=== PATIENT | female | born 1995 | race Caucasian/White ===

== ENCOUNTER 2016-05-27 08:43 | Emergency (ER) | payer BC | END 2016-05-27 12:15 | disposition home or self-care (01) | LOC: D.ER 08:43 | DX: L02.01 Cutaneous abscess of face (principal); L03.211 Cellulitis of face; R51 Headache; I10 Essential (primary) hypertension; F17.200 Nicotine dependence, unspecified, uncomplicated ==

== ENCOUNTER 2016-06-04 21:15 | Emergency (ER) | payer BC | END 2016-06-05 01:15 | disposition left against medical advice (07) | LOC: D.ER 21:15 | DX: I10 Essential (primary) hypertension (principal) ==

== ENCOUNTER 2016-06-29 14:51 | Emergency (ER) | payer SELFPAY | END 2016-06-29 19:12 | disposition home or self-care (01) | LOC: D.ER 14:51 | DX: G43.909 Migraine, unspecified, not intractable, without status migrainosus (principal); R11.10 Vomiting, unspecified ==

== ENCOUNTER 2016-07-04 03:50 | Emergency (ER) | payer SELFPAY | END 2016-07-04 04:35 | disposition home or self-care (01) | LOC: D.ER 03:50 | DX: R51 Headache (principal); I10 Essential (primary) hypertension ==

== ENCOUNTER 2016-11-03 21:49 | Emergency (ER) | payer SELFPAY | END 2016-11-03 23:19 | disposition home or self-care (01) | LOC: D.ER 21:49 | DX: S60.221A Contusion of right hand, initial encounter (principal); W22.8XXA Striking against or struck by other objects, initial encounter; I10 Essential (primary) hypertension; F17.200 Nicotine dependence, unspecified, uncomplicated ==

== ENCOUNTER 2016-11-25 21:30 | Emergency (ER) | payer SELFPAY ==
[2016-11-26 00:21] LABS: BASOPHILS 0.4 % (0-2); EOSINOPHILS 4.6 % (0-7); HEMATOCRIT 41.4 % (36.0-48.0); HEMOGLOBIN 13.8 g/dL (12-16); IMMATURE GRANULOCYTES 0.2 % (0-5); LYMPHOCYTES 48.3 % (15-50); MCH 31.1 pg (26.0-34.0); MCHC 33.3 g/dL (31.0-37.0); MCV 93.2 fL (80.0-100.0); MONOCYTES 6.6 % (2-11); NEUTROPHILS 39.9 % (40-80); PLATELET COUNT 416 10x3/uL (130-400); RBC 4.44 10x6/uL (4.00-5.40); RDW 13.1 % (11.5-14.5); WBC 12.5 10x3/uL (4.8-10.8)
[2016-11-26 00:30] LABS: ALBUMIN 3.5 g/dL (3.4-5.0); ALKALINE PHOSPHATASE 95 U/L (46-116); ALT (SGPT) 39 U/L (10-68); BILIRUBIN - TOTAL 0.25 mg/dL (0.2-1.3); CALC OSMOLALITY 277 mosm/kg (275-300); CALCIUM 9.2 mg/dL (8.5-10.1); CARBON DIOXIDE 27.9 mmol/L (21.0-32.0); CHLORIDE - SERUM 104 mmol/L (98-107); CREATININE - SERUM 0.8 mg/dL (0.6-1.3); GLUCOSE 101 mg/dL (74-106); MAGNESIUM - SERUM 2.1 mg/dL (1.8-2.4); POTASSIUM - SERUM 3.8 mmol/L (3.5-5.1); PROTEIN - SERUM 7.7 g/dL (6.4-8.2); SODIUM 139 mmol/L (136-145); UREA NITROGEN 12 mg/dL (7-18); eGFR NON AFRICAN AMERICAN > 90 mL/min (90-120)
== END 2016-11-26 01:33 | disposition home or self-care (01) ==
LOC: D.ER 21:30
PROVIDERS: Emergency Medicine
DX: R56.9 Unspecified convulsions (principal); I10 Essential (primary) hypertension

== ENCOUNTER 2016-12-07 21:05 | Emergency (ER) | payer SELFPAY | END 2016-12-08 00:10 | disposition home or self-care (01) | LOC: D.ER 21:05 | DX: S70.02XA Contusion of left hip, initial encounter (principal); X58.XXXA Exposure to other specified factors, initial encounter; Y93.52 Activity, horseback riding; Y92.830 Public park as the place of occurrence of the external cause; S39.012A Strain of muscle, fascia and tendon of lower back, initial encounter; F17.200 Nicotine dependence, unspecified, uncomplicated ==

== ENCOUNTER 2016-12-09 18:03 | Emergency (ER) | payer SELFPAY ==
[2016-12-09 19:13] LABS: HCG URINE NEGATIVE (NEGATIVE)
[2016-12-09 19:15] LABS: APPEARANCE SLT CLOUDY (CLEAR); BACTERIA MODERATE /hpf (NONE SEEN); BILIRUBIN NEGATIVE (NEGATIVE); COLOR YELLOW (YELLOW); GLUCOSE NEGATIVE (NEGATIVE); KETONE NEGATIVE (NEGATIVE); LEUKOCYTE ESTERASE TRACE (NEGATIVE); NITRITE NEGATIVE (NEGATIVE); PROTEIN NEGATIVE (NEGATIVE); RED CELLS - URINE RARE /hpf (0-5); SPECIFIC GRAVITY 1.015 (1.005-1.020); UROBILINOGEN NORMAL (NORMAL); WHITE CELLS - URINE 0-5 /hpf (0-5)
== END 2016-12-09 21:41 | disposition home or self-care (01) ==
LOC: D.ER 18:03
PROVIDERS: Nurse Practitioner Family
DX: S39.012A Strain of muscle, fascia and tendon of lower back, initial encounter (principal); W19.XXXA Unspecified fall, initial encounter; Y93.89 Activity, other specified; Y92.019 Unspecified place in single-family (private) house as the place of occurrence of the external cause; I10 Essential (primary) hypertension

== ENCOUNTER 2016-12-28 09:27 | Emergency (ER) | payer MEDICARE | END 2016-12-28 10:38 | disposition left against medical advice (07) | LOC: D.ER 09:27 | DX: M54.5 Low back pain (principal) ==

== ENCOUNTER 2017-01-08 03:28 | Emergency (ER) | payer MEDICARE | END 2017-01-08 03:50 | disposition home or self-care (01) | LOC: D.ER 03:28 | DX: F41.9 Anxiety disorder, unspecified (principal) ==

== ENCOUNTER 2017-03-20 00:47 | Emergency (ER) | payer SELFPAY ==
[2017-03-20 01:28] LABS: BASOPHILS 0.1 % (0-2); EOSINOPHILS 3.1 % (0-7); HEMATOCRIT 38.8 % (36.0-48.0); HEMOGLOBIN 12.8 g/dL (12-16); IMMATURE GRANULOCYTES 0.3 % (0-5); LYMPHOCYTES 30.3 % (15-50); MCH 31.1 pg (26.0-34.0); MCV 94.4 fL (80.0-100.0); MEAN PLATELET VOLUME 9.5 fL (7.4-10.4); MONOCYTES 5.1 % (2-11); NEUTROPHILS 61.1 % (40-80); PLATELET COUNT 408 10x3/uL (130-400); RBC 4.11 10x6/uL (4.00-5.40); RDW 13.2 % (11.5-14.5)
[2017-03-20 01:40] LABS: ALBUMIN 3.2 g/dL (3.4-5.0); ALKALINE PHOSPHATASE 122 U/L (46-116); ALT (SGPT) 33 U/L (10-68); CALC OSMOLALITY 277 mosm/kg (275-300); CALCIUM 9.2 mg/dL (8.5-10.1); CARBON DIOXIDE 26.4 mmol/L (21.0-32.0); CHLORIDE - SERUM 103 mmol/L (98-107); CREATININE - SERUM 0.7 mg/dL (0.6-1.3); GLUCOSE 102 mg/dL (74-106); MAGNESIUM - SERUM 1.7 mg/dL (1.8-2.4); POTASSIUM - SERUM 3.9 mmol/L (3.5-5.1); PROTEIN - SERUM 7.1 g/dL (6.4-8.2); SODIUM 138 mmol/L (136-145); UREA NITROGEN 17 mg/dL (7-18); eGFR NON AFRICAN AMERICAN > 90 mL/min (90-120)
[2017-03-20 01:45] LABS: APPEARANCE CLEAR (CLEAR); BILIRUBIN NEGATIVE (NEGATIVE); COLOR YELLOW (YELLOW); GLUCOSE NEGATIVE (NEGATIVE); KETONE NEGATIVE (NEGATIVE); NITRITE NEGATIVE (NEGATIVE); PROTEIN NEGATIVE (NEGATIVE); SPECIFIC GRAVITY 1.015 (1.005-1.020); UROBILINOGEN NORMAL (NORMAL)
[2017-03-20 01:53] LABS: UDS - AMPHET NEGATIVE QUAL (NEGATIVE); UDS - BARB NEGATIVE QUAL (NEGATIVE); UDS - BENZO NEGATIVE QUAL (NEGATIVE); UDS - COCAINE NEGATIVE QUAL (NEGATIVE); UDS - OPIATE NEGATIVE QUAL (NEGATIVE); UDS - PCP NEGATIVE QUAL (NEGATIVE); UDS - THC NEGATIVE QUAL (NEGATIVE)
== END 2017-03-20 02:50 | disposition home or self-care (01) ==
LOC: D.ER 00:47
PROVIDERS: Family Medicine
DX: G40.89 Other seizures (principal); I10 Essential (primary) hypertension

== ENCOUNTER 2017-03-28 17:12 | Emergency (ER) | payer MEDICAID | END 2017-03-28 19:02 | disposition home or self-care (01) | LOC: D.ER 17:12 | DX: N61.0 Mastitis without abscess (principal); N61.1 Abscess of the breast and nipple; I10 Essential (primary) hypertension; F17.200 Nicotine dependence, unspecified, uncomplicated ==

== ENCOUNTER 2017-04-22 17:33 | Emergency (ER) | payer SELFPAY ==
[2017-04-22 19:44] LABS: BASOPHILS 0.2 % (0-2); EOSINOPHILS 2.4 % (0-7); HEMATOCRIT 38.5 % (36.0-48.0); HEMOGLOBIN 12.9 g/dL (12-16); IMMATURE GRANULOCYTES 0.2 % (0-5); LYMPHOCYTES 45.5 % (15-50); MCH 31.2 pg (26.0-34.0); MCHC 33.5 g/dL (31.0-37.0); MEAN PLATELET VOLUME 9.6 fL (7.4-10.4); MONOCYTES 5.2 % (2-11); NEUTROPHILS 46.5 % (40-80); PLATELET COUNT 413 10x3/uL (130-400); RBC 4.14 10x6/uL (4.00-5.40); RDW 13.2 % (11.5-14.5); WBC 12.8 10x3/uL (4.8-10.8)
[2017-04-22 20:03] LABS: ALBUMIN 3.2 g/dL (3.4-5.0); ALKALINE PHOSPHATASE 106 U/L (46-116); ALT (SGPT) 42 U/L (10-68); CALC OSMOLALITY 281 mosm/kg (275-300); CHLORIDE - SERUM 106 mmol/L (98-107); CREATININE - SERUM 0.7 mg/dL (0.6-1.3); GLUCOSE 88 mg/dL (74-106); POTASSIUM - SERUM 3.5 mmol/L (3.5-5.1); PROTEIN - SERUM 7.2 g/dL (6.4-8.2); SODIUM 143 mmol/L (136-145); UREA NITROGEN 7 mg/dL (7-18); eGFR NON AFRICAN AMERICAN > 90 mL/min (90-120)
[2017-04-22 20:10] LABS: THYROID STIMULATING HORMONE 1.14 uIU/mL (0.36-3.74)
== END 2017-04-22 20:46 | disposition home or self-care (01) ==
LOC: D.ER 17:33
PROVIDERS: Physician Assistant
DX: G40.909 Epilepsy, unspecified, not intractable, without status epilepticus (principal); I10 Essential (primary) hypertension; F17.200 Nicotine dependence, unspecified, uncomplicated

== ENCOUNTER 2017-06-23 01:00 | Emergency (ER) | payer SELFPAY ==
[2017-06-23 01:33] LABS: HEMATOCRIT 39.9 % (36.0-48.0); HEMOGLOBIN 13.4 g/dL (12-16); LYMPHOCYTES 27.4 % (15-50); MCH 30.2 pg (26.0-34.0); MCHC 33.6 g/dL (31.0-37.0); MCV 90.1 fL (80.0-100.0); MEAN PLATELET VOLUME 9.7 fL (7.4-10.4); NEUTROPHILS 66.3 % (40-80); PLATELET COUNT 474 10x3/uL (130-400); RBC 4.43 10x6/uL (4.00-5.40); WBC 18.6 10x3/uL (4.8-10.8)
[2017-06-23 01:44] LABS: ALBUMIN 3.3 g/dL (3.4-5.0); ALKALINE PHOSPHATASE 113 U/L (46-116); ALT (SGPT) 33 U/L (10-68); BILIRUBIN - TOTAL 0.15 mg/dL (0.2-1.3); CALC OSMOLALITY 283 mosm/kg (275-300); CALCIUM 9.2 mg/dL (8.5-10.1); CARBON DIOXIDE 24.5 mmol/L (21.0-32.0); CHLORIDE - SERUM 106 mmol/L (98-107); POTASSIUM - SERUM 3.9 mmol/L (3.5-5.1); PROTEIN - SERUM 7.8 g/dL (6.4-8.2); SODIUM 141 mmol/L (136-145); UREA NITROGEN 13 mg/dL (7-18); eGFR NON AFRICAN AMERICAN 73 mL/min (90-120)
[2017-06-23 01:45] LABS: GLUCOSE 144 mg/dL (74-106)
[2017-06-23 01:47] LABS: CREATINE KINASE 160 UL (21-215); MAGNESIUM - SERUM 1.8 mg/dL (1.8-2.4)
[2017-06-23 01:50] LABS: TROPONIN-I < 0.017 ng/mL (0.000-0.060)
== END 2017-06-23 02:27 | disposition home or self-care (01) ==
LOC: D.ER 01:00
PROVIDERS: Emergency Medicine
DX: R07.9 Chest pain, unspecified (principal); R07.89 Other chest pain

== ENCOUNTER 2017-11-21 23:10 | Emergency (ER) | payer SELFPAY ==
[~2017-11-21] VITALS: Ht 160 cm; Wt 104.5 kg
[2017-11-21 23:13] VITALS: Ht 160 cm; Wt 104.5 kg
[2017-11-21] MEDS ORDERED: DEPAKOTE500 MG PO (23:16)
[2017-11-21] MEDS ORDERED: ZESTORETIC 20/21 TAB PO (23:16)
[2017-11-21] MEDS ORDERED: TYLENOL W/CODEI1 TAB PO (23:20)
[2017-11-21 23:41] LABS: HEMATOCRIT 38.1 % (36.0-48.0); HEMOGLOBIN 12.7 g/dL (12-16); MCH 30.2 pg (26.0-34.0); MCHC 33.3 g/dL (31.0-37.0); MCV 90.7 fL (80.0-100.0); MEAN PLATELET VOLUME 8.9 fL (7.4-10.4); NEUTROPHILS 59.9 % (40-80); PLATELET COUNT 474 10x3/uL (130-400); RDW 12.7 % (11.5-14.5); WBC 12.9 10x3/uL (4.8-10.8)
[2017-11-22 00:01] LABS: ALBUMIN 3.1 g/dL (3.4-5.0); ALKALINE PHOSPHATASE 143 U/L (46-116); ALT (SGPT) 24 U/L (10-68); BILIRUBIN - TOTAL 0.18 mg/dL (0.2-1.3); CALC OSMOLALITY 279 mosm/kg (275-300); CALCIUM 8.6 mg/dL (8.5-10.1); CARBON DIOXIDE 28.7 mmol/L (21.0-32.0); CHLORIDE - SERUM 103 mmol/L (98-107); CREATININE - SERUM 0.9 mg/dL (0.6-1.3); GLUCOSE 114 mg/dL (74-106); POTASSIUM - SERUM 3.7 mmol/L (3.5-5.1); PROTEIN - SERUM 7.4 g/dL (6.4-8.2); SODIUM 139 mmol/L (136-145); UREA NITROGEN 16 mg/dL (7-18); eGFR NON AFRICAN AMERICAN 83 mL/min (90-120)
[2017-11-22] MEDS ORDERED: BUTALB-APAP-CA1 EACH PO (00:37)
[2017-11-22 01:53] VITALS: BP 102/51
== END 2017-11-22 01:57 | disposition home or self-care (01) ==
LOC: D.ER 23:10
PROVIDERS: Family Medicine
DX: R51 Headache (principal); R11.10 Vomiting, unspecified; G40.909 Epilepsy, unspecified, not intractable, without status epilepticus; I10 Essential (primary) hypertension

== ENCOUNTER 2019-01-12 14:55 | Emergency (ER) | payer SELFPAY ==
[~2019-01-12] VITALS: Ht 157.5 cm; Wt 113.6 kg
[~2019-01-12 14:55] MED LIST: BUTALB-APAP-CA1 EACH PO; DEPAKOTE500 MG PO; TYLENOL W/CODEI1 TAB PO; ZESTORETIC 20/21 TAB PO
[2019-01-12 15:11] VITALS: Ht 157.5 cm; Wt 113.6 kg
[2019-01-12 16:02] LABS: APPEARANCE CLEAR (CLEAR); BASOPHILS 0.2 % (0-2); BILIRUBIN NEGATIVE (NEGATIVE); COLOR YELLOW (YELLOW); EOSINOPHILS 3.4 % (0-7); GLUCOSE NEGATIVE (NEGATIVE); HEMATOCRIT 39.1 % (36.0-48.0); HEMOGLOBIN 12.5 g/dL (12-16); IMMATURE GRANULOCYTES 0.2 % (0-5); KETONE NEGATIVE (NEGATIVE); LYMPHOCYTES 34.1 % (15-50); MCH 30.4 pg (26.0-34.0); MCV 95.1 fL (80.0-100.0); MEAN PLATELET VOLUME 9.2 fL (7.4-10.4); NEUTROPHILS 56.1 % (40-80); NITRITE NEGATIVE (NEGATIVE); PLATELET COUNT 465 10x3/uL (130-400); PROTEIN NEGATIVE (NEGATIVE); RBC 4.11 10x6/uL (4.00-5.40); RDW 13.5 % (11.5-14.5); UROBILINOGEN NORMAL (NORMAL); WBC 14.1 10x3/uL (4.8-10.8)
[2019-01-12 16:11] LABS: CALC OSMOLALITY 277 mosm/kg (275-300); CALCIUM 9.5 mg/dL (8.5-10.1); CARBON DIOXIDE 30.5 mmol/L (21.0-32.0); CHLORIDE - SERUM 104 mmol/L (98-107); CREATININE - SERUM 0.7 mg/dL (0.6-1.3); GLUCOSE 83 mg/dL (74-106); POTASSIUM - SERUM 4.2 mmol/L (3.5-5.1); SODIUM 140 mmol/L (136-145); UREA NITROGEN 13 mg/dL (7-18); eGFR NON AFRICAN AMERICAN > 90 mL/min (90-120)
[2019-01-12 16:17] LABS: ALBUMIN 3.7 g/dL (3.4-5.0); ALKALINE PHOSPHATASE 112 U/L (46-116); ALT (SGPT) 39 U/L (10-68); BILIRUBIN - TOTAL 0.34 mg/dL (0.2-1.3); PROTEIN - SERUM 7.8 g/dL (6.4-8.2)
[2019-01-12 19:06] VITALS: BP 135/90
== END 2019-01-12 19:06 | disposition home or self-care (01) ==
LOC: D.ER 14:55
PROVIDERS: Family Medicine
DX: R07.81 Pleurodynia (principal)

== ENCOUNTER 2019-04-14 00:08 | Emergency (ER) | payer SELFPAY ==
[~2019-04-14] VITALS: Ht 157.5 cm; Wt 122.7 kg
[2019-04-14 00:16] VITALS: Ht 157.5 cm; Wt 122.7 kg
[2019-04-14 01:03] LABS: UDS - AMPHET NEGATIVE QUAL (NEGATIVE); UDS - BARB NEGATIVE QUAL (NEGATIVE); UDS - BENZO NEGATIVE QUAL (NEGATIVE); UDS - COCAINE NEGATIVE QUAL (NEGATIVE); UDS - OPIATE NEGATIVE QUAL (NEGATIVE); UDS - PCP NEGATIVE QUAL (NEGATIVE); UDS - THC POSITIVE QUAL (NEGATIVE)
[2019-04-14 01:56] VITALS: BP 139/77
== END 2019-04-14 01:56 | disposition home or self-care (01) ==
LOC: D.ER 00:08
PROVIDERS: Emergency Medicine
DX: T65.91XA Toxic effect of unspecified substance, accidental (unintentional), initial encounter (principal); I10 Essential (primary) hypertension; Z72.0 Tobacco use; F12.10 Cannabis abuse, uncomplicated